=== PATIENT | male | born 2000 | race Caucasian/White ===

== ENCOUNTER 2024-07-02 16:49 | Emergency (ER) | payer MEDICAID | END 2024-07-02 18:04 | disposition home or self-care (01) | LOC: DL.ED 16:49 | DX: J06.9 Acute upper respiratory infection, unspecified (principal) | CPT/HCPCS: 99283 ==

== ENCOUNTER 2024-09-22 21:03 | Emergency (ER) | payer MEDICAID ==
[2024-09-22] MEDS: Dexamethasone 4 MG/ML SDV IM ONE (21:28)
== END 2024-09-22 21:36 | disposition home or self-care (01) ==
LOC: DL.ED 21:03
DX: M54.32 Sciatica, left side (principal); Z88.5 Allergy status to narcotic agent
CPT/HCPCS: 96372; 99283; J1100